=== PATIENT | female | born 1995 | race Caucasian/White ===

== ENCOUNTER 2021-10-19 14:37 | Outpatient (REF) | payer BC, SELFPAY ==
[2021-10-19 19:40] LABS: Bilirubin Negative (Negative); Blood Negative (Negative); Clarity Clear (Clear); Glucose Negative (Negative); Ketones Negative (Negative); Leukocyte Esterase Small (Negative); Nitrite Negative (Negative); Specific Gravity 1.025 (1.005-1.025); Urobilinogen 0.2 EU/dL (Up TO 0.2)
[2021-10-19 19:50] LABS: Bacteria Few HPF (Negative); C & S Indicated? No; Casts Negative LPF (Negative); Crystals Negative HPF (Negative); Epithelial Cells Moderate HPF (Negative); Mucus Moderate (Negative); RBC 0-2 HPF (0-2)
== END 2021-10-19 14:38 | disposition home or self-care (01) ==
LOC: NCHCN 14:37
PROVIDERS: PCP Nurse Practitioner Family; Visit Provider Nurse Practitioner Family
DX: R30.9 Painful micturition, unspecified (principal)
CPT/HCPCS: 81003; 81015; 87480; 87510; 87660

== ENCOUNTER 2021-12-18 18:57 | Outpatient (REF) | payer BC, SELFPAY ==
[2021-12-18 18:55] LABS: Abs Immature Grans 0.02 10^3/uL (0.0-0.06); Absolute Basophil Count 0.02 10^3/uL (0.0-0.2); Absolute Eosinophil Count 0.09 10^3/uL (0.0-0.7); Absolute Lymphocyte Count 0.57 10^3/uL (1.2-3.4); Absolute Neutrophil Count 6.42 10^3/uL (1.2-6.7); Basophils % 0.3; Eosinophils % 1.2; HCT 40.8 % (36.0-46.0); Immature Grans % 0.3; Lymphocytes % 7.4; MCH 29.5 pg (27.0-33.0); MCHC 31.9 % (32.0-36.0); MCV 93 fL (80-95); MPV 11.1 fL (8.0-11.0); Monocytes % 7.8; Platelet Count 383 10^3/uL (130-400); RBC 4.41 10^6/uL (3.93-5.22); RDW 14.2 % (11.7-14.6); RDW-SD 48.5 fL; WBC 7.72 10^3/uL (4.4-10.8)
[2021-12-18 19:34] LABS: ALT 14 U/L (14-59); AST 15 U/L (15-37); Albumin 3.1 g/dL (3.4-5.0); Alkaline Phosphatase 67 U/L (46-116); Bilirubin, Direct 0.1 mg/dL (0.0-0.2); Bilirubin, Total 0.2 mg/dL (0.2-1.0); C-Reactive Protein 0.95 mg/dL (0.0-0.3); Total Protein 7.1 g/dL (6.4-8.2)
== END 2021-12-18 18:58 | disposition home or self-care (01) ==
LOC: NCHCN 18:57
PROVIDERS: PCP Nurse Practitioner Family; Visit Provider Internal Medicine
DX: K51.90 Ulcerative colitis, unspecified, without complications (principal)
CPT/HCPCS: 80076; 85025; 86140